=== PATIENT | female | born 1990 | race Caucasian/White ===

== ENCOUNTER → 2021-10-11 21:40 | Observation (INO) ==
[2021-10-11] MEDS: Ringers Solution, Lactated 1,000 ML IVC ONE ×2 (13:30→14:44)
[2021-10-11 14:43] LABS: Bilirubin,Urine Negative (Negative); Blood,Urine Negative (Negative); Clarity,Urine Clear (Clear); Color,Urine Light-Yellow (Yellow); Glucose,Urine (UA) Normal (Normal); Ketones,Urine Negative (Negative); Leukocyte Esterase,Urine Negative (Negative); Nitrite,Urine Negative (Negative); Protein,Urine Negative (Neg-Trace); Specific Gravity,Urine 1.005 (1.010-1.025); Urobilinogen,Urine Normal (Normal)
[~2021-10-11 21:40] MED LIST: Betamethasone Acet/SodPhos 30 MG/5 ML VIAL IM SCH; Penicillin G Potassium 2,500,000 UNIT/105 ML MLS IVPB SCH; Penicillin G Potassium 5,000,000 UNIT in 0.9 % Sodium Chloride Mini Bag 100 ML IVPB ONE; Ringers Solution, Lactated 1,000 ML ONE; Terbutaline 1 MG/ML VIAL SQ ONE
== END | disposition home or self-care (01) ==
LOC: 1NENULAB
PROVIDERS: ADMIT Advanced Practice Midwife; ATTEND Advanced Practice Midwife

== ENCOUNTER → 2021-10-12 15:13 | Observation (INO) ==
[~2021-10-12 15:13] MED LIST changes: -Penicillin G Potassium 2,500,000 UNIT/105 ML MLS IVPB SCH; -Penicillin G Potassium 5,000,000 UNIT in 0.9 % Sodium Chloride Mini Bag 100 ML IVPB ONE; -Ringers Solution, Lactated 1,000 ML ONE; -Terbutaline 1 MG/ML VIAL SQ ONE
== END | disposition home or self-care (01) ==
LOC: 1NENULAB
PROVIDERS: ADMIT Obstetrics & Gynecology; ATTEND Obstetrics & Gynecology

== ENCOUNTER 2021-10-18 04:41 | Inpatient (IN) ==
[~2021-10-18 04:41] MED LIST changes: +Azithromycin 500 MG in 0.9 % Sodium Chloride 250 ML IVPB PRN; -Betamethasone Acet/SodPhos 30 MG/5 ML VIAL IM SCH; +Famotidine 20 MG/2 ML VIAL IVP PRN; +Metoclopramide 10 MG/2 ML VIAL IVP PRN; +Naloxone 0.4 MG/ML INJ IVP PRN; +Ondansetron 4 MG/2 ML VIAL IVP PRN; +Ringers Solution, Lactated 1,000 ML ONE
[2021-10-18] MEDS ORDERED: Ringers Solution, Lactated 1,000 ML IVC SCH (04:45)
[2021-10-18 05:22] LABS: Basophils % 0.1 %; Eosinophils # 0.1 K/mcL (0.0-0.6); Eosinophils % 0.6 %; Hematocrit 29.3 % (35.3-44.9); Hemoglobin 9.2 g/dL (11.5-15.4); Immature Granulocytes % 0.5 % (0-4); Lymphocytes # 1.7 K/mcL (0.6-4.6); Lymphocytes % 15.5 %; Mean Corpuscular HGB Conc 31.4 g/dL (31.6-35.5); Mean Corpuscular Hemoglobin 24.2 pg (28.0-33.3); Mean Corpuscular Volume 77.1 fL (83.0-100.0); Mean Platelet Volume 10.3 fL (9.4-12.4); Monocytes # 0.8 K/mcL (0.0-1.3); Monocytes % 7.8 %; Neutrophils # 8.2 K/mcL (1.6-8.9); Platelet Count 279 K/mcL (140-400); Red Cell Distribution Width 14.9 % (11.5-14.5); Segmented Neutrophils % 75.5 %; White Blood Count 10.8 K/mcL (4.3-11.1)
[2021-10-18] MEDS ORDERED: *HR* FentaNYL (PF) 100 MCG/2 ML VIAL IVP PRN (05:35)
[2021-10-18] MEDS ORDERED: *HR* Nalbuphine 10 MG/ML AMPUL IV PRN (05:36)
[2021-10-18] MEDS ORDERED: *HR* Morphine Sulfate/PF 10 MG/10 ML AMPUL ONE (05:40)
[2021-10-18] MEDS ORDERED: *HR* FentaNYL (PF) 100 MCG/2 ML VIAL ONE (05:40)
[2021-10-18 05:54] LABS: Influenza A PCR Negative (Negative); Influenza B PCR Negative (Negative); Resp. Syncytial Virus PCR Negative (Negative)
[2021-10-18] MEDS ORDERED: Oxytocin 30 UNIT/503 ML BAG IVC ONE (05:56)
[2021-10-18 06:00] LABS: SARS-CoV-2 by PCR (In House) Negative (Negative)
[2021-10-18] MEDS ORDERED: Acetaminophen IV 1,000 MG/100 ML BAG IVPB ONE (06:19)
[2021-10-18] MEDS ORDERED: Ketorolac 30 MG/ML VIAL ONE (06:19)
[2021-10-18] MEDS ORDERED: Ondansetron 4 MG/2 ML VIAL ONE (06:19)
[2021-10-18 07:29] LABS: Amphetamine Screen,Urine Negative ng/mL (Cutoff=1000); Barbiturate Screen,Urine Negative ng/mL (Cutoff=200); Benzodiazepines Screen,Urine Negative ng/mL (Cutoff=200); Cannabinoid Screen,Urine Negative ng/mL (Cutoff = 50); Cocaine Screen,Urine Negative ng/mL (Cutoff= 300); Opiate Screen,Urine Negative ng/mL (Cutoff=300); Phencyclidine Screen,Urine Negative ng/mL (Cutoff=25)
[2021-10-18 08:37] LABS: Bilirubin,Urine Negative (Negative); Blood,Urine Negative (Negative); Clarity,Urine Turbid (Clear); Color,Urine Light-Yellow (Yellow); Glucose,Urine (UA) Normal (Normal); Ketones,Urine Negative (Negative); Leukocyte Esterase,Urine Small (Negative); Nitrite,Urine Negative (Negative); PH,Urine 7.5 pH Units (5.0-8.0); Protein,Urine 70 mg/dL (Neg-Trace); Specific Gravity,Urine 1.008 (1.010-1.025); Urobilinogen,Urine Normal (Normal)
[2021-10-18 09:01] LABS: Amorphous Sediment,Urine Few per hpf (None-Few); Bacteria,Urine Few per hpf (None-Few); Mucus,Urine Few per lpf (None-Few); Squamous Epithelial Cell,Urine Moderate per hpf (None-Few); WBC,Urine 15-30 per hpf (0-3)
[2021-10-18] MEDS ORDERED: *HR* OxyCODONE Immed Rel 5 MG TABLET PO PRN (10:36)
[2021-10-18] MEDS ORDERED: Ondansetron 4 MG/2 ML VIAL IVP PRN (10:36)
[2021-10-18] MEDS ORDERED: Rho Immune Globulin 1,500 UNIT SYRINGE IM ONE (10:36)
[2021-10-18] MEDS ORDERED: Oxytocin 30 UNIT/503 ML BAG IVC SCH (10:36)
[2021-10-18] MEDS ORDERED: Simethicone 80 MG TAB.CHEW PO PRN (10:36)
[2021-10-18] MEDS: Prenatal Vit/FA 1 EACH TABLET PO SCH (10:48)
[2021-10-18] MEDS: Ibuprofen 600 MG TABLET PO SCH ×2 (14:55→21:26)
[2021-10-18] MEDS: metroNIDAZOLE 500 MG TABLET PO SCH ×2 (14:55→21:26)
[2021-10-18] MEDS: cephALEXin 500 MG CAPSULE PO SCH ×2 (14:55→21:27)
[2021-10-18] MEDS: Acetaminophen 325 MG TABLET PO SCH (15:07)
[2021-10-19] MEDS: Acetaminophen 325 MG TABLET PO SCH ×3 (00:03→16:19)
[2021-10-19] MEDS: Ibuprofen 600 MG TABLET PO SCH ×2 (03:50→16:18)
[2021-10-19 04:50] LABS: Basophils % 0.2 %; Eosinophils # 0.1 K/mcL (0.0-0.6); Eosinophils % 0.6 %; Hematocrit 29.6 % (35.3-44.9); Immature Granulocytes % 0.4 % (0-4); Lymphocytes # 1.4 K/mcL (0.6-4.6); Lymphocytes % 11.2 %; Mean Corpuscular HGB Conc 30.4 g/dL (31.6-35.5); Mean Corpuscular Hemoglobin 23.6 pg (28.0-33.3); Mean Corpuscular Volume 77.5 fL (83.0-100.0); Mean Platelet Volume 10.2 fL (9.4-12.4); Monocytes % 7.7 %; Neutrophils # 10.2 K/mcL (1.6-8.9); Platelet Count 281 K/mcL (140-400); Red Blood Count 3.82 M/mcL (3.82-4.97); Segmented Neutrophils % 79.9 %; White Blood Count 12.7 K/mcL (4.3-11.1)
[2021-10-19] MEDS: metroNIDAZOLE 500 MG TABLET PO SCH ×3 (08:08→20:16)
[2021-10-19] MEDS: Prenatal Vit/FA 1 EACH TABLET PO SCH (08:09)
[2021-10-19] MEDS: cephALEXin 500 MG CAPSULE PO SCH ×3 (08:09→20:16)
[2021-10-19 20:32] VITALS: O2SAT 99
[2021-10-20] MEDS: Acetaminophen 325 MG TABLET PO SCH (02:09)
[2021-10-20] MEDS: Ibuprofen 600 MG TABLET PO SCH ×2 (02:09→08:28)
[2021-10-20 07:56] VITALS: BP 110/71; PULSE 82; TEMP 97.7
[2021-10-20] MEDS: metroNIDAZOLE 500 MG TABLET PO SCH (08:28)
[2021-10-20] MEDS: Prenatal Vit/FA 1 EACH TABLET PO SCH (08:28)
[2021-10-20] MEDS: cephALEXin 500 MG CAPSULE PO SCH (08:28)
== END 2021-10-20 11:30 | disposition home or self-care (01) | DRG 540 ==
LOC: 1NENULAB → 1NENUOBS 09:39
PROVIDERS: ADMIT Obstetrics & Gynecology; ATTEND Obstetrics & Gynecology